=== PATIENT | female | born 1950 | race Caucasian/White ===

== ENCOUNTER 2018-06-06 13:56 | Emergency (ER) | payer OTHER ==
[2018-06-06 14:20] VITALS: TEMP 97.9; BMI 22.3
--- NOTE | 2018-06-06 14:37 | PDOC ---
History of Present Illness - General Stated Complaint: HEADACHE Time Seen by Provider: 06/06/18 14:35 History Source: Patient Exam Limitations: No Limitations - History of Present Illness Initial Comments: HPI: 68 y/o female presenting to [facility] complaining of a headache and a sense of slowed mentation. Pt is s/p initial outpatient Transcranial Magnetic Stimulation (TMS) procedure yesterday at psychiatrist office. Is concerned the machine malfunctioned and went too high. After leaving the office, the pt experienced a frontal headache rated 8/10 and nausea without vomiting. Symptoms improved with Advil. Awoke this morning and continues to experience a frontal headache but rates it 2-3/10. No additional nausea. Now feels a sense of slowed mentation. Denies change in vision or hearing. No disequilibrium. Able to perform daily tasks as normal. Spoke to psychiatrist this morning who did not express concern and suggested the pt rest. and repeatedly expressed concern that the machine malfunctioned. Pt has a h/o depression treated with Lexapro 20mg. Endorses good compliance with medication. PCP: Dr. Marcos Psychiatrist: Dr. Angelica Wilson Past History - Past Medical History Allergies/Adverse Reactions: Allergies Allergy/AdvReac Type Severity Reaction Status Date / Time No Known Allergies Allergy Verified 06/06/18 14:15 COPD: No Psychiatric Problems: Yes (DEPRESSION) Thyroid Disease: Yes (HYPOTHYROID) - Immunization History Immunization Up to Date: Yes - Suicide/Smoking/Psychosocial Hx Smoking History: Current every day smoker Number of Cigarettes Smoked Daily: 4 Information on smoking cessation initiated: No Hx Alcohol Use: No Drug/Substance Use Hx: No Review of Systems - Review of Systems Able to Perform ROS?: Yes Comments:: In addition to that documented in the HPI above, the additional ROS was obtained : Constitutional: Denies fevers or chills or syncope ENMT: Denies sore throat CV: Denies chest pain Resp: Denies SOB GI: Denies vomiting or diarrhea Neuro: Per HPI *Physical Exam - Vital Signs Last Vital Signs Temp Pulse Resp BP Pulse Ox 97.9 F 70 18 122/68 100 06/06/18 14:15 06/06/18 14:15 06/06/18 14:15 06/06/18 14:15 06/06/18 14:15 - Physical Exam Comments: Constitutional: Well-developed, well-nourished female in no acute distress or obvious discomfort. Found sitting upright on edge of hospital bed. Alert and oriented x4. Answered all questions appropriately and completely. Speech was non -labored, non-pressured. Head: Normocephalic. No obvious external signs of trauma. Eyes: Pupils 4mm and PERRL bilaterally. EOMI. Sclerae white. Conjunctiva moist and not injected. EARS: Hearing grossly intact. NOSE: No nasal discharge. THROAT: Oral cavity and pharynx normal. No inflammation, swelling, exudate, or lesions. Teeth and gingiva in good general condition. Neck: Supple, trachea is midline. Cardiovascular: Regular rate and regular rhythm. No murmur, rubs, clicks, or gallops. Peripheral pulses: Radial pulses full. Respiratory: Breathing unlabored. Equal chest rise and fall. Clear to auscultation bilaterally. No stridor, no wheezing, no rhonchi. Neuro: Alert and oriented. Moving all four extremities spontaneously. No focal deficits. Cranial nerves intact. Sensation to all four extremities intact. Upper and lower extremities: proximal and distal strength 5/5. [employer] strength 5/ 5 - equal and symmetric. Plantar flexion and dorsiflexion 5/5. Intact finger to nose, rapid alternating movements, and heel to turner. Gait normal. Skin: Warm, dry, and intact. Psych: Affect: appropriate. Mood: normal. Moderate Sedation - Procedure Monitoring Vital Signs: Procedure Monitoring Vital Signs Temperature 97.9 F 06/06/18 14:15 Pulse Rate 70 06/06/18 14:15 Respiratory Rate 18 06/06/18 14:15 Blood Pressure 122/68 06/06/18 14:15 O2 Sat by Pulse Oximetry (%) 100 06/06/18 14:15 Medical Decision Making - Medical Decision Making *Reviewed vital signs, nursing notes, and prior visit documentation (if available). 68 y/o female presenting with resolving headache and sense of slowed mentation s /p outpatient TMS therapy. Symptoms improved with OTC Advil. Pt and and family members repeatedly expressed concern that the machine had malfunctioned and this was the cause of the pts symptoms. Pt is neurologically intact. Conversation is at a natural cadance. Low suspicion for intracranial hemorrhage , ischemia, or other acute intracranial process. Ordered Tylenol for symptom relief. 15:40 Left telephone message at pts psychiatrist office. Awaiting call back. Discussion with pt and family regarding why MRI or CT of Head with a neurologically intact pt would be of little benefit and would not likely show if the TMS machine had malfunctioned. Discussed risks of radiation exposure. Pt expressed verbal understanding. Requested neurology follow up. Provided referral to Dr. Scales. Discussed physical findings with pt. Answered all questions. Provided return precautions. Pt expressed verbal understanding and agreement with plan to discharge home with outpatient follow up. Encouraged pt to reach out to psychiatrist on Friday morning. Dr. Wilson returned call after pt left the department. Discussed HPI and ED course. Stated she will follow up with the pt this evening. *DC/Admit/Observation/Transfer Diagnosis at time of Disposition: Headache - Discharge Dispostion Disposition: HOME Condition at time of disposition: Good Decision to Admit order: No - Referrals Referrals: Kalpana Marcos MD [Primary Care Provider] - Dave Fernandez MD [Staff Physician] - - Patient Instructions Printed Discharge Instructions: DI for Headache Additional Instructions: You were seen today for a headache after receiving your first treatment with TMS yesterday. Your physical exam was reassuring and normal in the department. You should follow up with your psychiatrist on Friday to insure you are feeling better. Stay hydrated and rest this weekend. Do not drink alcohol. I have also provided a referral for you to follow up with a neurologist, Dr. Fernandez. You will need to call to make an appointment. The number is included in this packet. You can take over the counter Tylenol or Advil as needed for pain. Take as directed on the package insert. Do not exceed the recommended dosage. Go to the nearest emergency department if your condition worsens or you feel like you need additional emergency evaluation. Print Language: CYMRAES - Post Discharge Activity
[2018-06-06] MEDS ORDERED: ACETAMINOPHEN 500 MG TABLET (FP) PO ONE (15:07)
[2018-06-06] MEDS ORDERED: ACETAMINOPHEN 325 MG TABLET (FP) ONE (15:11)
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
[2018-06-06 16:26] VITALS: BP 123/76; PULSE 74
== END 2018-06-06 16:26 | disposition home or self-care (01) ==
LOC: JER 13:56
DX: R51 Headache (principal); F32.9 Major depressive disorder, single episode, unspecified; E03.9 Hypothyroidism, unspecified; Z98.890 Other specified postprocedural states
CPT/HCPCS: 99282-25